=== PATIENT | female | born 1945 | race Two or more races ===

== ENCOUNTER 2023-11-14 09:05 | Day surgery (SDC) | payer MEDICARE, SELFPAY ==
--- NOTE | 2023-11-14 | US_ITS ---
The [address] [address] Patient Name: WILLIAM BANGURA MRN: [id number] date: 1945 Sex: F Assigned Patient Location: [place] Current Patient Location: Accession/Order Number: [id number] Exam Date: 11/14/2023 09:45 Report Date: 11/14/2023 11:55 At the request of: MARINA LORA Procedure: US biopsy thyroid EXAMINATION: US biopsy thyroid HISTORY: RIGHT THYROID MASS COMPARISON: No relevant comparison available. TECHNIQUE: After obtaining informed consent, an ultrasound-guided biopsy was performed in the usual sterile manner. FINDINGS: IMAGING: Ultrasound BIOPSY NEEDLE: 25-gauge 2 inch SPECIMEN TYPE, #, LOCATION: 3 fine-needle aspirates, 4.8 cm mixed solid and cystic right thyroid nodule with the solid components targeted MEDICATION: 4 cc 1% buffered lidocaine COMPLICATIONS: None. LABORATORY: Pending molecular analysis and histopathology OTHER: Negative. US/US biopsy thyroid IMPRESSION: Uneventful ultrasound guided biopsy. The patient was instructed to obtain follow up care and biopsy results from the referring physician. Electronically authenticated by: ISAAC NAVARRO Date: 11/14/2023 11:55
[2023-11-14 09:30] VITALS: BP 153/75; PULSE 110; O2SAT 97
[2023-11-14] MEDS: LIDOCAINE HCL 10 ML, SODIUM BICARBONATE 1 MEQ INJ (10:25)
--- NOTE | 2023-11-14 10:58 | SUR.PREOP ---
11/10/23 Pt instructed on procedure, date, time, and prep. Pt made aware to hold eliquis for 2 days prior to biopsy.
== END 2023-11-14 10:45 | disposition home or self-care (01) ==
LOC: US 09:10
PROVIDERS: Radiology Diagnostic Radiology; Visit Provider Otolaryngology
DX: E07.9 Disorder of thyroid, unspecified (principal)
CPT/HCPCS: 10005; 88173